=== PATIENT | male | born 1960 | race Caucasian/White ===

== ENCOUNTER → 2017-01-22 | Outpatient (CLI) | payer BC ==
[~2017-01-22] MED LIST: ACTOS PO; ANDROGEL1.25 GM TD; ATENOLOL PO; CENTRUM CARDIO PO; EPLERENONE25 MG PO; FAMOTIDINE20 M1 PO; HUMALOG100 U/M2 SUBQ; HYDROCODON-ACE1 EAC5 PO; JANUMET 50-1,1 UDTAB; JANUMET XR 1001 EACH PO; LANTUS SOLOSTAR3 ML SUBQ; LEVEMIR; LEVEMIR FLEXPEN INJ; LIPITOR PO; LIPITOR40 MG PO; LOPRESSOR PO; LOTREL 10/20 CA1 CAP PO; MULTIPLE VITAMI1 T11 PO; MULTIVITAMIN1 UDCAP PO; NORVASC PO; NOVALOG; NOVOLOG FLEXPEN INJ; NOVOLOG100 U/M2; NOVOLOG100 U/M2 SUBQ; OLMSRTN-AMLDPN1 EACH PO; ONE DAILY 50 PL1 TA1 PO; TOUJEO SOL300 UNIT/1; TRESIBA FL100 UNIT/1 SUBQ; VICTOZA0.6 MG/0.1 SQ; VICTOZA0.6 MG/0.1 SUBQ; VITAMIN D50000 UNIT PO; ZESTORETIC 20/11 TAB PO
--- NOTE | ~2017-01-22 | EKG ---
PATIENT: JOSE ANGEL RANGEL UNIT #: [id number] Ventricular Rate: 77 BPM Atrial Rate: 77 BPM P-R Interval: 174 ms QRS Duration: 92 ms Q-T Interval: 378 ms QTC Calculation(Bezet): 427 ms P [place]: 19 degrees Calculated R [place]: 9 degrees Calculated T [place]: 4 degrees Diagnosis Line: Normal sinus rhythm Diagnosis Line: Septal infarct , age undetermined Diagnosis Line: Abnormal ECG Diagnosis Line: No previous ECGs available Diagnosis Line: Confirmed by JORDY ANDRADE MD ([id number]) on Diagnosis Line: 01/23/2017 11:24:14 AM INTERPRETING MD: RAYMOND SARABIA
[2017-01-22 15:29] LABS: BLOOD UREA NITROGEN 15 mg/dL (9-23); BUN/CREATININE RATIO 21.42; CALCIUM SERUM 9.1 mg/dL (8.4-10.2); CARBON DIOXIDE 29 mmol/L (22-31); CHLORIDE 102 mmol/L (100-111); CREATININE SERUM 0.7 mg/dL (0.6-1.4); GLOM FILT RATE Estimated ABOVE60 mL/min (>60); GLUCOSE FASTING 197 mg/dL (70-110); POTASSIUM 3.8 mmol/L (3.5-5.1); SODIUM 136 mmol/L (135-145)
== END | disposition home or self-care (01) ==
LOC: CAMB 13:33
PROVIDERS: Surgery
DX: Z01.818 Encounter for other preprocedural examination (principal); R22.2 Localized swelling, mass and lump, trunk; R94.31 Abnormal electrocardiogram [ECG] [EKG]
CPT/HCPCS: 36415; 80048; 93005

== ENCOUNTER → 2017-01-29 | Day surgery (SDC) | payer BC ==
--- NOTE | ~2017-01-29 | OR ---
Unit #: [id number] #: [id number] Patient: JOSE ANGEL RANGEL [id number] [address] [place], [place] [address] [id number] MR#: [id number] NAME: JOSE ANGEL RANGEL. ROOM: Date of Procedure: 01/29/2017 Admission Date: 01/29/2017 Surgeon: Rivera Mendez Jr., M.D. : 1960 Attending Physician: Rivera Mendez Jr., M.D. Primary Care Physician: Soraida De La Cruz M.D. OPERATIVE REPORT INDICATIONS FOR PROCEDURE The patient is a 56-year-old white male, recently presented to the office complaining of an enlarging mass of the left auscultatory triangle area of the back. Apparently, this causes some discomfort at times and he desires removal of it. PREOPERATIVE DIAGNOSIS Lipomatous mass, left auscultatory triangle area of the back. POSTOPERATIVE DIAGNOSIS Lipomatous mass, left auscultatory triangle area of the back, noting approximately a 6 cm lipomatous mass that was submuscular. ANESTHESIA MAC anesthesia with 0.5% Marcaine with epinephrine locally PROCEDURE PERFORMED Excision of lipomatous mass of the left upper back. DESCRIPTION OF PROCEDURE The patient was positioned in right lateral decubitus position. After being prepped and draped in routine fashion, he was given some MAC anesthesia and then locally anesthetized with 0.5% Marcaine with epinephrine. A transverse incision was made over the area of the palpable mass approximately 3 to 4 inch in length. This was carried down through subcutaneous tissue with some fatty tissue being encountered that was dissected free of the surrounding tissue and down to the fascia of the muscle using the Bovie cautery. After it was removed, it was obviously the mass was submuscular. The muscular fibers were then split and the mass was exposed and it was a lipomatous mass approximately 6 cm in diameter. It was removed from the chest wall with the Bovie cautery and after it was completely removed, hemostasis achieved with Bovie cautery. The specimen sent to pathology and the muscle reapproximated with interrupted 2-0 Vicryl sutures. Subcutaneous tissue was approximated with interrupted 3-0 Vicryl sutures. Skin edges approximated with stainless-steel skin clips and skin stapling device. Sterile dressings were applied externally. Estimated blood loss less than 50 mL. The patient received less than 1000 mL crystalloid solution during the procedure. Sponge and instrument counts correct x3. No drains were used. No complications. The patient was discharged in satisfactory condition. Unit #: [id number] #: [id number] Patient: JOSE ANGEL RANGEL Dictated by... Rivera Mendez Jr., MRik PALACIOS/nikos TD: 01/30/2017 06:09 JOB #: [id number] OPERATIVE REPORT Page 1 of 1 X Rivera Mendez MD X PROCEDURE OPERATIVE NOTE
== END | disposition home or self-care (01) ==
LOC: CSUR 08:18
DX: D17.79 Benign lipomatous neoplasm of other sites (principal); E11.65 Type 2 diabetes mellitus with hyperglycemia; Z79.4 Long term (current) use of insulin; I10 Essential (primary) hypertension; E78.5 Hyperlipidemia, unspecified; G47.33 Obstructive sleep apnea (adult) (pediatric); K21.9 Gastro-esophageal reflux disease without esophagitis; E66.9 Obesity, unspecified; M79.1 Myalgia
CPT/HCPCS: 82947; 88304; J2250; J3010